=== PATIENT | male | born 1970 | race Caucasian/White ===

== ENCOUNTER 2017-10-20 23:07 | Emergency (ER) | payer MEDICAID ==
[2017-10-21 00:29] LABS: Urine Bacteria Absent (Absent); Urine Bilirubin Negative (Negative); Urine Glucose Negative (Negative); Urine Nitrite Negative (Negative)
[2017-10-21] MEDS ORDERED: Levofloxacin TAB* 500 MG PO ONE (00:38)
--- NOTE | 2017-10-21 00:51 | ED ---
Mendez Nava Thomas, scribed for Saira Segovia MD on 10/20/17 at 2349 . GI/ HPI - HPI Summary HPI Summary: The patient is a 46 y/o male with a history of Down Syndrome brought in by ambulance with presenting to the ED with blood coming out from his penis. The amount of bleeding is described as not a lot, but noticeable. LEVEL FIVE CAVEAT: HPI LIMITED BY DOWN SYNDROME - History of Current Complaint Chief Complaint: EDUrogenitalProblems Time Seen by Provider: 10/20/17 23:26 Stated Complaint: BLEEDING FROM THE PENIS Hx Obtained From: Patient Onset/Duration: Resolved Severity: Moderate Current Severity: None Additional Locations for Males: Penis - blood from penis - Allergy/Home Medications Allergies/Adverse Reactions: Allergies Allergy/AdvReac Type Severity Reaction Status Date / Time No Known Allergies Allergy Verified 09/27/13 10:41 PMH/Surg Hx/FS Hx/Imm Hx Previously Healthy: No - LEVEL FIVE CAVEAT: PMH LIMITED BY DOWN SYNDROME Neurological History: Reports: Other Neuro Impairments/Disorders - Hx Down syncrome Infectious Disease History: No Infectious Disease History: Denies: Traveled Outside the [place] in Last 30 Days - Family History Known Family History: Positive: Other - FHx limited due to down syndrome - Social History Alcohol Use: None Hx Substance Use: No Substance Use Type: Reports: None Hx Tobacco Use: No Smoking Status (MU): Never Smoked Tobacco Review of Systems - ROS Summary Review of Systems Summary: LEVEL FIVE CAVEAT: ROS LIMITED BY DOWN SYNDROME Positive: other - Blood from penis All Other Systems Reviewed And Are Negative: No Physical Exam - Summary Physical Exam Summary: VITAL SIGNS: Reviewed. GENERAL: Patient is a well-developed and nourished male who is lying comfortable in the stretcher. Patient is not in any acute respiratory distress. HEAD AND FACE: No signs of trauma. No ecchymosis, hematomas or skull depressions. No sinus tenderness. EYES: PERRLA, EOMI x 2, No injected conjunctiva, no nystagmus. EARS: Hearing grossly intact. Ear canals and tympanic membranes are within normal limits. MOUTH: Oropharynx within normal limits. NECK: Supple, trachea is midline, no adenopathy, no JVD, no carotid bruit, no c- spine tenderness, neck with full ROM. CHEST: Symmetric, no tenderness at palpation LUNGS: Clear to auscultation bilaterally. No wheezing or crackles. CVS: Regular rate and rhythm, S1 and S2 present, no murmurs or gallops appreciated. ABDOMEN: Soft, non-tender. No signs of distention. No rebound no guarding, and no masses palpated. Bowel sounds are normal. UROGENITAL: There is no trauma and no blood. The meatus looks clean. EXTREMITIES: FROM in all major joints, no edema, no cyanosis or clubbing. NEURO: He has severe Down Syndrome and MR. He is almost nonverbal. SKIN: Dry and warm LEVEL FIVE CAVEAT: PHYSICAL EXAM LIMITED BY DOWN SYNDROME Triage Information Reviewed: Yes Vital Signs On Initial Exam: Initial Vitals Temp Pulse Resp BP Pulse Ox 98.3 F 83 18 147/109 96 10/20/17 23:09 10/20/17 23:09 10/20/17 23:09 10/20/17 23:09 10/20/17 23:09 Vital Signs Reviewed: Yes - [place] Coma Scale Coma Scale Total: 15 Diagnostics - Vital Signs Vital Signs Temp Pulse Resp BP Pulse Ox 10/20/17 23:09 98.3 F 83 18 147/109 96 - Laboratory Lab Statement: Any lab studies that have been ordered have been reviewed, and results considered in the medical decision making process. GIGU Course/Dx - Course Assessment/Plan: The patient is a 46 y/o male with a history of Down Syndrome brought in by ambulance with presenting to the ED with blood coming out from his penis. The amount of bleeding is described as not a lot, but noticeable.. In the ED course the patient was given Levaquin. Urinalysis was obtained. The patient is diagnosed with UTI, hemorrhagic cystitis. The patient is instructed to follow up with primary care. - Diagnoses Provider Diagnoses: UTI (urinary tract infection), Hemorrhagic cystitis Discharge - Discharge Plan Condition: Stable Disposition: HOME Prescriptions: Levofloxacin TAB* [Levaquin TAB*] 500 mg PO DAILY #7 tab Levofloxacin TAB* [Levaquin TAB*] 500 mg PO DAILY #7 tab Patient Education Materials: Urinary Tract Infection in Men (ED) Referrals: Kianna Duran MD [Primary Care Provider] - 3 Days Additional Instructions: Follow up with your primary care physician in three days. Return to the emergency department for any new or worsening symptoms. The documentation as recorded by the Mendez singh Thomas accurately reflects the service I personally performed and the decisions made by me, Saira Segovia MD.
[2017-10-21 01:10] VITALS: BP 122/82
--- NOTE | 2017-10-23 13:09 | ED ---
Progress - Progress Note Progress Note: Pt's final urine cx and sens indicate 100,000 group B step. He was dx'd w/ UTI and started on levaquin. Group B strep is typically susceptible to PCN's. Nursing notes indicate pt was here for witnessed blood from penis however per provider note, no blood on inspection. Nursing reports an episode of what sounds like straining on the toilet followed by witness penile blood - possible prostate issue? Continue levaquin to cover for this possible issue. D/c reports pt is to f/u w/ PCP. Attempted to call pt however after multiple attempts, line continues to be engaged/busy. Will mail letter to pt and PCP for f/u as pt needs PCN to address this infection. bharat See clerk, aware. Also discussed w / Susan Preciado PA-C, who will attempt calling again later today. Course/Dx - Diagnoses Provider Diagnoses: UTI (urinary tract infection), Hemorrhagic cystitis
== END 2017-10-21 01:19 | disposition home or self-care (01) ==
LOC: ED 23:07
DX: N39.0 Urinary tract infection, site not specified (principal); N30.91 Cystitis, unspecified with hematuria; Q90.9 Down syndrome, unspecified
CPT/HCPCS: 81003; 81015; 87077; 87086; 99282